=== PATIENT | male | born 1965 | race Two or more races ===

== ENCOUNTER 2020-01-19 06:50 | Inpatient (IN) | payer MEDICAID, OTHER ==
[~2020-01-19] VITALS: Ht 180.3 cm; Wt 115.0 kg
[2020-01-19] MEDS ORDERED: ACETAMINOPHEN 500 MG TAB PO ONE (08:15)
[2020-01-19 08:22] LABS: Basophils # (auto) 0 10 ^3/uL (0-0.2); Basophils % (auto) 0.3 % (0.0-2.0); Eosinophils # (auto) 0 10 ^3/uL (0-0.8); Eosinophils % (auto) 0.1 % (0.0-7.0); Hematocrit 44.8 % (41.0-53.0); Hemoglobin 14.9 g/dL (13.5-17.5); Lymphocytes # (auto) 0.9 10 ^3/uL (0.4-5.4); Lymphocytes % (auto) 13.1 % (10.0-50.0); Mean Corpuscular Hemoglobin 27.6 pg (28.0-32.0); Mean Corpuscular Hgb Conc. 33.2 g/dL (32.0-36.0); Mean Corpuscular Volume 83.3 fL (80.0-100.0); Monocytes # (auto) 0.6 10 ^3/uL (0-1.3); Monocytes % (auto) 9.7 % (0.0-12.0); Neutrophils # (auto) 5.2 10 ^3/uL (1.6-8.6); Neutrophils % (auto) 76.8 % (37.0-80.0); Nucleated Red Blood Cells % 0.2 %; Platelet Count (auto) 189 10^3/uL (140-450); Red Blood Cells 5.38 10^6/uL (4.5-5.90); Red Cell Distribution Width 14.3 % (11.8-14.3); White Blood Cell 6.7 10^3/uL (4.4-10.8)
[2020-01-19] MEDS ORDERED: DexAMETHasone SOD PHOS 10MG/1ML VIAL INJ IV ONE (08:30)
[2020-01-19 09:04] LABS: Alanine Aminotransferase 36 U/L (16-61); Albumin 2.8 g/dL (3.4-5.0); Alkaline Phosphatase 116 U/L (45-117); Anion Gap 10 (5-15); Aspartate Aminotransferase 32 U/L (15-37); BUN/Creatinine Ratio 9.5; Bilirubin, Total 0.5 mg/dL (0.2-1.0); Blood Urea Nitrogen 12 mg/dL (7-18); Calcium 7.9 mg/dL (8.5-10.1); Carbon Dioxide 25 mmol/L (21-32); Chloride 95 mmol/L (98-107); GFR African American 77 mL/min; GFR Non-African American 64 mL/min; Glucose 248 mg/dL (74-106); Lactate Dehydrogenase 315 U/L (87-241); Potassium 3.2 mmol/L (3.5-5.1); Sodium 130 mmol/L (136-145); Total Protein 7.9 g/dL (6.4-8.2)
[2020-01-19 09:43] LABS: CRP High Sensitivity 6.18 mg/dL (< 0.3)
[2020-01-19] MEDS ORDERED: ACETAMINOPHEN 325 MG TAB PO PRN (11:45)
[2020-01-19] MEDS ORDERED: POTASSIUM EFFERVESENT TAB 25 MEQ PO ONE ×2 (11:45)
[2020-01-19] MEDS ORDERED: HYDROcodone-ACET 5/325MG TAB PO PRN (11:45)
[2020-01-19 12:10] VITALS: BP 114/74
[2020-01-19] MEDS ORDERED: LATA0.0019 EACHEYE (12:39)
[2020-01-19] MEDS ORDERED: METF-916 PO (12:39)
[2020-01-19] MEDS ORDERED: LISI-648 PO (12:39)
[2020-01-19] MEDS ORDERED: METH10TA6 PO (12:39)
[2020-01-19] MEDS ORDERED: GLIM4TAB42 PO (12:39)
[2020-01-19] MEDS ORDERED: OMEP-263 PO (12:39)
[2020-01-19] MEDS ORDERED: CHOL500023 PO (12:39)
[2020-01-19] MEDS ORDERED: ATOR20TA50 PO (12:39)
[2020-01-19] MEDS: ASCORBIC ACID 500 MG TAB PO SCH (12:45)
[2020-01-19] MEDS: CHOLECALCIFEROL (VITD3) 2,000 UNIT CAP PO SCH (12:45)
[2020-01-19] MEDS: ZINC SULFATE 220mg CAP or TAB PO SCH (12:45)
[2020-01-19 18:58] LABS: Urine Bacteria FEW /hpf (None Seen); Urine Blood 1+ /uL (Negative); Urine Mucus FEW (None Seen); Urine Specific Gravity 1.023 (1.001-1.035); Urine WBC 4 /hpf (0 - 3)
[2020-01-19] MEDS: ALBUTEROL SULF HFA 90MCG INH 200DOSE IN SCH ×2 (19:01→21:00)
[2020-01-19] MEDS ORDERED: DEXTROSE (50%) 50ML SYRG IV PRN (22:15)
[2020-01-19 23:59] VITALS: BP 112/70
[2020-01-19] MEDS: ATORVASTATIN 20 MG TAB PO SCH (23:59)
[2020-01-19] MEDS: DOXYCYCLINE 100MG/250ML 250 ML IV SCH (23:59)
--- NOTE | 2020-01-19 23:59 | NUR ---
Telemetry admit from ER MONSE CARNEY admitted to Telemetry unit after SBAR received. Patient oriented to DEVI REVELES, RN primary RN, unit, room, bed, and unit policies regarding patient care and visiting hours. Patient now on continuous telemetry monitoring, tele box # 7 and telemetry reading on arrival to unit is SR-[id number]. Patient placed on 3L bedside oxygen, weighed by bedscale and encouraged to call if they need something. All questions and concerns addressed, patient verbalized understanding.
[2020-01-20] MEDS ORDERED: INFLUENZA QUAD 2020-2021 0.5 ML SYRG IM ONE (01:45)
[2020-01-20] MEDS ORDERED: PNEUMOCOCCAL VACC POLYS 25 MCG/0.5 ML VIAL IM ONE (01:45)
--- NOTE | 2020-01-20 02:45 | NUR ---
IV removal Patient c/o pain to IV site. IV DC'd with clean sterile technique, catheter fully intact. Pressure dressing applied to site. Patient tolerated well.
--- NOTE | 2020-01-20 02:50 | NUR ---
IV insertion IV access obtained, via clean sterile technique by inserting 20 gauge catheter at RFA after 2 attempts. IV secured properly. No trauma to site. Patient tolerated well.
[2020-01-20 05:00] VITALS: BP 107/69
[2020-01-20] MEDS: ALBUTEROL SULF HFA 90MCG INH 200DOSE IN SCH ×3 (06:08→20:32)
[2020-01-20] MEDS: InsuLIN REG 1unit/0.01ml Soln (100units/ml) SC SCH ×4 (06:30→22:31)
[2020-01-20] MEDS: ACCU-CHEK COMFORT CURVE STRIP VI SCH ×4 (06:30→22:13)
[2020-01-20 07:36] LABS: Basophils # (auto) 0 10 ^3/uL (0-0.2); Basophils % (auto) 0.2 % (0.0-2.0); Eosinophils # (auto) 0 10 ^3/uL (0-0.8); Hemoglobin 14.8 g/dL (13.5-17.5); Lymphocytes # (auto) 0.8 10 ^3/uL (0.4-5.4); Lymphocytes % (auto) 6.6 % (10.0-50.0); Mean Corpuscular Hemoglobin 27.9 pg (28.0-32.0); Mean Corpuscular Hgb Conc. 33.7 g/dL (32.0-36.0); Monocytes # (auto) 0.6 10 ^3/uL (0-1.3); Monocytes % (auto) 5.1 % (0.0-12.0); Neutrophils # (auto) 10.5 10 ^3/uL (1.6-8.6); Neutrophils % (auto) 88.1 % (37.0-80.0); Nucleated Red Blood Cells % 0.1 %; Platelet Count (auto) 205 10^3/uL (140-450); Red Cell Distribution Width 14.1 % (11.8-14.3); White Blood Cell 11.9 10^3/uL (4.4-10.8)
[2020-01-20 07:50] LABS: Calcium 8.4 mg/dL (8.5-10.1); Magnesium 2.6 mg/dL (1.6-2.6); Potassium 3.8 mmol/L (3.5-5.1)
[2020-01-20 07:59] LABS: BUN/Creatinine Ratio 18.1; CRP High Sensitivity 5.81 mg/dL (< 0.3)
[2020-01-20 08:41] VITALS: BP 138/89
[2020-01-20] MEDS: ASCORBIC ACID 500 MG TAB PO SCH (10:00)
[2020-01-20] MEDS: DexAMETHasone 4 MG TAB PO SCH (10:54)
[2020-01-20] MEDS: DOXYCYCLINE 100MG/250ML 250 ML IV SCH ×2 (10:54→22:12)
[2020-01-20] MEDS: ZINC SULFATE 220mg CAP or TAB PO SCH (10:54)
[2020-01-20] MEDS: methIMAzole 5 MG TAB PO SCH (10:55)
[2020-01-20] MEDS: PANTOPRAZOLE 40 MG TAB PO SCH (10:55)
[2020-01-20] MEDS: CHOLECALCIFEROL (VITD3) 2,000 UNIT CAP PO SCH (10:56)
[2020-01-20] MEDS ORDERED: IOHEXOL 350 MG/ML 100ML IJ ONE (12:55)
[2020-01-20 13:00] VITALS: BP 116/65
--- NOTE | 2020-01-20 13:10 | NUR ---
Jenn THOMAS ROUNDING: Jenn THOMAS AT BEDSIDE. INFORMED OF PATIENTS CURRENT OXYGENATION STATUS. INFORMED PATIENT HAS BEEN TACHYCARDIC IN THE 120'S. INFORMED OF PATIENTS LACK OF SLEEP. NO NEW ORDERS RECEIVED.
--- NOTE | 2020-01-20 13:20 | NUR ---
PATIENT TAKEN DOWN TO CT VIA WHEELCHAIR BY AMMUNITION SPECIALIST ON 3L NC. PATIENT MAINTAINED ON NPO STATUS.
--- NOTE | 2020-01-20 15:04 | NUR ---
Assessment Patient is a 54-year-old male who is alert and oriented. Prior to admission patient was staying with his sister Ruthy. Patient states his sister was allowing him to sleep at her home but during the day he would leave. Patient states he does not want to return home with his sister. Patient states he receives unemployment with an amount of 200 dlls. Patient has MD orders for home health and home oxygen but if patient does not have a placed to go to after discharge MD order cannot be completed. Will informed bedside nurse. Addendum: 01/20/20 at 1516 by GREG LAWRENCE Amended: Links added.
[2020-01-20 17:00] VITALS: BP 107/68
--- NOTE | 2020-01-20 20:10 | NUR ---
OPENING SHIFT NOTE Assumed care of patient who is A&O x4. Currently on 3L NC. Denies pain at this time. PIV in right forearm in intact and patent. Flushed with 10ml NS. Patient is ambulatory at baseline without the use of assistive devices. POC discussed and patient encouraged to call for assistance when needed. Bed is in low locked position with side rails up x2. Call light is within reach and patient encouraged to call for assistance when needed. Will continue to monitor for changes PRN.
[2020-01-20 22:00] VITALS: BP 119/82
[2020-01-20] MEDS: ATORVASTATIN 20 MG TAB PO SCH (22:13)
[2020-01-21] VITALS (7 sets, daily range): BP systolic 90–127; BP diastolic 48–95
--- NOTE | 2020-01-21 05:16 | NUR ---
DESATURATION Patient's spo2 is 87% on 3L NC with noted dry cough. O2 increased to 5L and spo2 increased to 92% Robitussin administered as ordered for cough. Lab at bedside for blood draw. Will continue to monitor for changes.
[2020-01-21] MEDS: guaiFENesin-DM 100/10mg/5ml SYR PO PRN (05:19)
[2020-01-21] MEDS: ACCU-CHEK COMFORT CURVE STRIP VI SCH ×4 (06:47→21:39)
[2020-01-21 06:57] LABS: Calcium 8.8 mg/dL (8.5-10.1); Potassium 3.8 mmol/L (3.5-5.1)
[2020-01-21] MEDS: InsuLIN REG 1unit/0.01ml Soln (100units/ml) SC SCH ×4 (06:57→21:49)
[2020-01-21] MEDS: ALBUTEROL SULF HFA 90MCG INH 200DOSE IN SCH ×3 (06:58→21:55)
--- NOTE | 2020-01-21 07:06 | NUR ---
LABS Received call from lab stating that CBC was hemolyzed. Will redraw.
[2020-01-21 07:07] LABS: BUN/Creatinine Ratio 16.4; CRP High Sensitivity 10.5 mg/dL (< 0.3)
[2020-01-21 08:35] LABS: Basophils # (auto) 0 10 ^3/uL (0-0.2); Basophils % (auto) 0.2 % (0.0-2.0); Eosinophils # (auto) 0 10 ^3/uL (0-0.8); Hematocrit 40.6 % (41.0-53.0); Hemoglobin 13.5 g/dL (13.5-17.5); Lymphocytes # (auto) 1.3 10 ^3/uL (0.4-5.4); Lymphocytes % (auto) 8.2 % (10.0-50.0); Mean Corpuscular Hemoglobin 27.4 pg (28.0-32.0); Mean Corpuscular Hgb Conc. 33.1 g/dL (32.0-36.0); Mean Corpuscular Volume 82.7 fL (80.0-100.0); Monocytes # (auto) 0.8 10 ^3/uL (0-1.3); Neutrophils # (auto) 13.8 10 ^3/uL (1.6-8.6); Neutrophils % (auto) 86.6 % (37.0-80.0); Nucleated Red Blood Cells % 0.1 %; Platelet Count (auto) 237 10^3/uL (140-450); Red Blood Cells 4.91 10^6/uL (4.5-5.90); Red Cell Distribution Width 13.7 % (11.8-14.3); White Blood Cell 15.9 10^3/uL (4.4-10.8)
[2020-01-21] MEDS: PANTOPRAZOLE 40 MG TAB PO SCH (10:10)
[2020-01-21] MEDS: DOXYCYCLINE 100MG/250ML 250 ML IV SCH ×2 (10:10→21:39)
[2020-01-21] MEDS: ZINC SULFATE 220mg CAP or TAB PO SCH (10:10)
[2020-01-21] MEDS: DexAMETHasone 4 MG TAB PO SCH (10:10)
[2020-01-21] MEDS: ASCORBIC ACID 500 MG TAB PO SCH (10:11)
[2020-01-21] MEDS: CHOLECALCIFEROL (VITD3) 2,000 UNIT CAP PO SCH (10:11)
[2020-01-21] MEDS: methIMAzole 5 MG TAB PO SCH (10:11)
[2020-01-21] MEDS ORDERED: REMDESIVIR PER PHARMACY IV SCH (11:30)
[2020-01-21] MEDS ORDERED: REMDESIVIR 200 MG in NS 210ml LOADING DOSE ADULT IV ONE (17:00)
--- NOTE | 2020-01-21 20:00 | NUR ---
OPENING SHIFT NOTE Assumed care of patient who is A&O x4. Currently on 3L NC with no s/s of distress. Reports mild SOB with exertion and dry cough noted. Patient denies pain at this time. PIV in right forearm is intact and patent. Flushed with 10ml NS. Noted to flush slowly, but patient denies discomfort to the area. POC discussed and patient verbalizes understanding. Bed is in low locked position with side rails up x2. Call light is within reach and patient encouraged to call for assistance when needed. Will continue to monitor for changes PRN.
[2020-01-21] MEDS: ATORVASTATIN 20 MG TAB PO SCH (21:39)
--- NOTE | 2020-01-21 23:54 | NUR ---
IV removal IV to right forearm infiltrated. DC'd with clean sterile technique, catheter fully intact. Pressure dressing applied to site. Patient tolerated well.
--- NOTE | 2020-01-21 23:58 | NUR ---
IV insertion IV access obtained, via clean sterile technique by inserting 22 gauge catheter at left forearm after 1 attempt. IV secured properly. No trauma to site. Patient tolerated well.
[2020-01-22] VITALS (10 sets, daily range): BP systolic 92–132; BP diastolic 55–83
[2020-01-22] MEDS: guaiFENesin-DM 100/10mg/5ml SYR PO PRN (00:23)
--- NOTE | 2020-01-22 03:09 | NUR ---
[facility] [employer] Plasma verified by two RNs. Vital signs measured and documented under transfusion spreadsheet. Transfusion started. No adverse effects noted.
--- NOTE | 2020-01-22 04:30 | NUR ---
TRANSFUSION COMPLETE No adverse effects noted. Vital signs documented in transfusion spread sheet.
[2020-01-22] MEDS: ALBUTEROL SULF HFA 90MCG INH 200DOSE IN SCH ×3 (06:38→22:22)
[2020-01-22] MEDS: ACCU-CHEK COMFORT CURVE STRIP VI SCH ×4 (06:46→22:04)
[2020-01-22] MEDS: InsuLIN REG 1unit/0.01ml Soln (100units/ml) SC SCH ×4 (06:56→22:07)
[2020-01-22 07:23] LABS: Basophils # (auto) 0 10 ^3/uL (0-0.2); Basophils % (auto) 0.1 % (0.0-2.0); Eosinophils # (auto) 0 10 ^3/uL (0-0.8); Hematocrit 39.8 % (41.0-53.0); Hemoglobin 13.6 g/dL (13.5-17.5); Lymphocytes # (auto) 1.2 10 ^3/uL (0.4-5.4); Lymphocytes % (auto) 9.1 % (10.0-50.0); Mean Corpuscular Hemoglobin 28.1 pg (28.0-32.0); Mean Corpuscular Hgb Conc. 34.1 g/dL (32.0-36.0); Mean Corpuscular Volume 82.4 fL (80.0-100.0); Monocytes # (auto) 0.8 10 ^3/uL (0-1.3); Monocytes % (auto) 6.1 % (0.0-12.0); Neutrophils # (auto) 10.7 10 ^3/uL (1.6-8.6); Neutrophils % (auto) 84.7 % (37.0-80.0); Nucleated Red Blood Cells % 0.1 %; Platelet Count (auto) 272 10^3/uL (140-450); Red Blood Cells 4.83 10^6/uL (4.5-5.90); Red Cell Distribution Width 13.9 % (11.8-14.3); White Blood Cell 12.6 10^3/uL (4.4-10.8)
--- NOTE | 2020-01-22 07:45 | NUR ---
Opening Shift Note Assumed care of patient, awake and alert. A/O X 4. Patient is on 2L NC with no S/S of distress/SOB or pain. Skin is warm and dry with right and left lower leg discoloration, consistent with venous stasis dermatitis. Pulses 1+ noted in the lower extremities. Right arm is slightly edematous. Patient reports red tinged sputum when coughing. Instructed on POC and to call for assist PRN. Patient verbalized understanding. Safety measure are in place and the call light is within reach of the patient. Will continue to monitor for changes Q1hr and PRN.
[2020-01-22 07:47] LABS: Albumin 2.5 g/dL (3.4-5.0); Calcium 8.5 mg/dL (8.5-10.1); Magnesium 2.7 mg/dL (1.6-2.6); Potassium 3.4 mmol/L (3.5-5.1)
[2020-01-22 07:56] LABS: BUN/Creatinine Ratio 20.7; Bilirubin, Direct 0.2 mg/dL (0-0.2); Bilirubin, Total 0.5 mg/dL (0.2-1.0); CRP High Sensitivity 10.1 mg/dL (< 0.3); Total Protein 7.2 g/dL (6.4-8.2)
--- NOTE | 2020-01-22 10:00 | NUR ---
Dr. Freeman at bedside Dr. Freeman at bedside discussing the POC with the patient. All questions and concerns were answered at this time.
[2020-01-22] MEDS: PANTOPRAZOLE 40 MG TAB PO SCH (11:27)
[2020-01-22] MEDS: CHOLECALCIFEROL (VITD3) 2,000 UNIT CAP PO SCH (11:27)
[2020-01-22] MEDS: DOXYCYCLINE 100MG/250ML 250 ML IV SCH ×2 (11:27→22:04)
[2020-01-22] MEDS: methIMAzole 5 MG TAB PO SCH (11:27)
[2020-01-22] MEDS: ZINC SULFATE 220mg CAP or TAB PO SCH (11:27)
[2020-01-22] MEDS: DexAMETHasone 4 MG TAB PO SCH (11:28)
--- NOTE | 2020-01-22 12:50 | NUR ---
Suicidal thought Patient's sister called saying that the patient is sending her suicidal messages and that he is feeling depressed. Patient was counseled and assessed. Patient states he "has no plan" to take his life. Charge made aware. Will continue to monitor closely.
[2020-01-22] MEDS: ASCORBIC ACID 1,000 MG TAB PO SCH (13:50)
--- NOTE | 2020-01-22 14:10 | NUR ---
Call light answered Patient called reporting his left forearm was swollen from IV antibiotics running. IV was assessed and a new 20 gauge IV was placed using sterile technique in the left AC after 2 attempts. Patient tolerated the procedure well. IV antibiotics ran switched over to new site. Warm compresses applied.
--- NOTE | 2020-01-22 17:15 | NUR ---
Remdesivir treatment started Remdesivir started, vitals, 97.7, HR 64, RR 22, BP 123/76, O2 92%. Vitals rechecked at 1730, 97.8, HR 59, RR 19, BP 117/69, O2 92%. Patient tolerating the treatment well.
[2020-01-22] MEDS: REMDESIVIR 100mg in NS 230ml DAILYx4DAYS (NO VENT) IV SCH (17:16)
--- NOTE | 2020-01-22 19:59 | NUR ---
REMDESIVIR COMPLETE IV FLUSHED WITH 30ML NORMAL SALINE. VITALS STABLE BP 115/71 RR 20 HR 71 O2 92%. WILL CONTINUE TO MONITOR.
[2020-01-22] MEDS: ATORVASTATIN 20 MG TAB PO SCH (22:04)
[2020-01-23 05:00] VITALS: BP 113/67
[2020-01-23] MEDS: ACCU-CHEK COMFORT CURVE STRIP VI SCH ×4 (06:23→22:04)
[2020-01-23] MEDS: InsuLIN REG 1unit/0.01ml Soln (100units/ml) SC SCH ×4 (06:26→22:09)
[2020-01-23] MEDS: ALBUTEROL SULF HFA 90MCG INH 200DOSE IN SCH ×3 (06:29→21:51)
--- NOTE | 2020-01-23 07:50 | NUR ---
Shift Opening Note Assumed care of patient, awake and alert. A/O X 4. Patient is on 2L NC with no S/S of distress/SOB or pain. Skin is warm and dry with right and left lower leg discoloration, consistent with venous stasis dermatitis. Pulses 1+ noted in the lower extremities. Instructed on POC and to call for assist PRN. Patient verbalized understanding. Safety measure are in place and the call light is within reach of the patient. Will continue to monitor for changes Q1hr and PRN.
[2020-01-23 09:00] VITALS: BP 114/57
[2020-01-23] MEDS: ZINC SULFATE 220mg CAP or TAB PO SCH (09:54)
[2020-01-23] MEDS: DexAMETHasone 4 MG TAB PO SCH (09:54)
[2020-01-23] MEDS: DOXYCYCLINE 100MG/250ML 250 ML IV SCH ×2 (09:54→22:04)
[2020-01-23] MEDS: PANTOPRAZOLE 40 MG TAB PO SCH (09:55)
[2020-01-23] MEDS: methIMAzole 5 MG TAB PO SCH (09:55)
[2020-01-23] MEDS: CHOLECALCIFEROL (VITD3) 2,000 UNIT CAP PO SCH (09:55)
[2020-01-23] MEDS: ASCORBIC ACID 1,000 MG TAB PO SCH (09:55)
[2020-01-23 12:54] VITALS: BP 129/78
--- NOTE | 2020-01-23 13:03 | NUR ---
Nutrition Assessment Notes Please refer to link for full assessment notes. Est Energy needs: 5349-2230 kcals (12-15 kcal/kgBW) Est Protein needs: 156-195 gms/day (2.0-2.5 gm/kgIBW 78kg) Will continue to monitor and reassess prn. Addendum: 01/23/20 at [address] Amended: Links added.
--- NOTE | 2020-01-23 14:57 | NUR ---
Dr. Freeman at bedside Dr. Freeman at bedside discussing the POC with the patient. All questions and concerns were answered at this time.
[2020-01-23] MEDS ORDERED: GLIMEPIRIDE 2 MG TAB PO ONE (15:00)
[2020-01-23 16:50] VITALS: BP 125/69
[2020-01-23] MEDS: REMDESIVIR 100mg in NS 230ml DAILYx4DAYS (NO VENT) IV SCH (17:16)
--- NOTE | 2020-01-23 18:10 | NUR ---
Remdesivir Treatment vitals Pre treatment vitals BP 123/70, RR 18, HR 57, temp 98.0, O2 92% at 1716. Vitals at 1731 BP 121/71, HR 55, RR 18, temp 97.9 O2 93%. Post treatment vitals at 1810 BP 122/70, HR 55, RR 20, temp 97.9, O2 93%.
[2020-01-23 22:00] VITALS: BP 134/85
[2020-01-23] MEDS: ATORVASTATIN 20 MG TAB PO SCH (22:04)
[2020-01-24 05:00] VITALS: BP 109/70
[2020-01-24] MEDS: ALBUTEROL SULF HFA 90MCG INH 200DOSE IN SCH ×3 (06:28→22:39)
[2020-01-24] MEDS: ACCU-CHEK COMFORT CURVE STRIP VI SCH ×4 (06:30→23:00)
[2020-01-24] MEDS: InsuLIN REG 1unit/0.01ml Soln (100units/ml) SC SCH ×4 (06:33→23:04)
[2020-01-24 06:57] LABS: Basophils # (auto) 0 10 ^3/uL (0-0.2); Basophils % (auto) 0.1 % (0.0-2.0); Eosinophils # (auto) 0 10 ^3/uL (0-0.8); Eosinophils % (auto) 0.1 % (0.0-7.0); Hematocrit 40.9 % (41.0-53.0); Hemoglobin 13.5 g/dL (13.5-17.5); Lymphocytes # (auto) 2.1 10 ^3/uL (0.4-5.4); Lymphocytes % (auto) 14.9 % (10.0-50.0); Mean Corpuscular Hemoglobin 27.3 pg (28.0-32.0); Mean Corpuscular Hgb Conc. 33.1 g/dL (32.0-36.0); Mean Corpuscular Volume 82.5 fL (80.0-100.0); Monocytes # (auto) 1.3 10 ^3/uL (0-1.3); Monocytes % (auto) 9.4 % (0.0-12.0); Neutrophils # (auto) 10.6 10 ^3/uL (1.6-8.6); Neutrophils % (auto) 75.5 % (37.0-80.0); Nucleated Red Blood Cells % 0.1 %; Platelet Count (auto) 401 10^3/uL (140-450); Red Blood Cells 4.95 10^6/uL (4.5-5.90); Red Cell Distribution Width 13.7 % (11.8-14.3)
[2020-01-24 07:09] LABS: Albumin 2.5 g/dL (3.4-5.0); Calcium 8.5 mg/dL (8.5-10.1); Magnesium 2.7 mg/dL (1.6-2.6); Potassium 3.2 mmol/L (3.5-5.1)
[2020-01-24 07:15] LABS: BUN/Creatinine Ratio 24.7; Bilirubin, Total 0.4 mg/dL (0.2-1.0); Total Protein 6.9 g/dL (6.4-8.2)
[2020-01-24 09:00] VITALS: BP 97/66
[2020-01-24] MEDS: DOXYCYCLINE 100MG/250ML 250 ML IV SCH ×2 (09:30→23:00)
[2020-01-24] MEDS: ZINC SULFATE 220mg CAP or TAB PO SCH (09:30)
[2020-01-24] MEDS: methIMAzole 5 MG TAB PO SCH (09:31)
[2020-01-24] MEDS: DexAMETHasone 4 MG TAB PO SCH (09:31)
[2020-01-24] MEDS: PANTOPRAZOLE 40 MG TAB PO SCH (09:31)
[2020-01-24] MEDS: ASCORBIC ACID 1,000 MG TAB PO SCH (09:31)
[2020-01-24] MEDS: CHOLECALCIFEROL (VITD3) 2,000 UNIT CAP PO SCH (09:32)
[2020-01-24 13:00] VITALS: BP 125/66
--- NOTE | 2020-01-24 16:47 | NUR ---
PAGED ELEVATED BLOOD SUGAR 428.
--- NOTE | 2020-01-24 16:47 | NUR ---
NEW ORDER FOR MODERATE INSULIN SCALE
[2020-01-24 17:00] VITALS: BP 118/76
[2020-01-24] MEDS ORDERED: POTASSIUM CHL 20 Meq TABLET PO ONE (17:00)
[2020-01-24] MEDS: REMDESIVIR 100mg in NS 230ml DAILYx4DAYS (NO VENT) IV SCH (17:00)
--- NOTE | 2020-01-24 17:00 | NUR ---
PRE REMDESIVIR VITALS BP 118/70 P 55 RR16 93% ROOM AIR
--- NOTE | 2020-01-24 17:15 | NUR ---
15 INFUSION VITALS BP 117/72 P 60 RR18 93% SATURATION ON ROOM AIR
--- NOTE | 2020-01-24 18:56 | NUR ---
ENDORSED CARE TO NIGHT RN, PATIENT RUNNING REMDESIVIR NOC TO ASSESS POST INFUSION VITALS.
--- NOTE | 2020-01-24 20:43 | NUR ---
POST REMDESIVIR VITALS BP 114/76 HR 66 O2 93%
[2020-01-24 22:00] VITALS: BP 109/63
[2020-01-24] MEDS: ATORVASTATIN 20 MG TAB PO SCH (23:00)
[2020-01-25 05:00] VITALS: BP 109/69
[2020-01-25] MEDS: ALBUTEROL SULF HFA 90MCG INH 200DOSE IN SCH ×3 (06:20→22:00)
[2020-01-25] MEDS: ACCU-CHEK COMFORT CURVE STRIP VI SCH ×4 (06:22→21:05)
[2020-01-25] MEDS: InsuLIN REG 1unit/0.01ml Soln (100units/ml) SC SCH ×5 (06:28→21:06)
--- NOTE | 2020-01-25 07:30 | NUR ---
Opening Shift Note Upon entering room patient awake and alert. No signs of distress or pain noted. Respirations even and unlabored. Instructed patient on the use of the call light PRN, call light within reach. Bed locked and in lowest position with two side rails up. Will continue to monitor for changes.
[2020-01-25 08:08] LABS: Hematocrit 40.1 % (41.0-53.0); Hemoglobin 13.2 g/dL (13.5-17.5); Mean Corpuscular Hemoglobin 27.2 pg (28.0-32.0); Mean Corpuscular Hgb Conc. 32.9 g/dL (32.0-36.0); Mean Corpuscular Volume 82.7 fL (80.0-100.0); Platelet Count (auto) 415 10^3/uL (140-450); Red Blood Cells 4.85 10^6/uL (4.5-5.90); Red Cell Distribution Width 14.2 % (11.8-14.3); White Blood Cell 12.5 10^3/uL (4.4-10.8)
[2020-01-25 08:24] LABS: Calcium 8.6 mg/dL (8.5-10.1); Magnesium 2.6 mg/dL (1.6-2.6); Potassium 3.7 mmol/L (3.5-5.1)
[2020-01-25 08:26] LABS: BUN/Creatinine Ratio 26.4
[2020-01-25 09:00] VITALS: BP 105/67
[2020-01-25 09:17] LABS: Basophils % (manual) 0 (0.0-2.0); Blast Cells 0; Eosinophils % (manual) 0 (0-7); Promyelocytes % 0; Reactive Lymphocytes 0
[2020-01-25 10:28] VITALS: BP 109/69
[2020-01-25] MEDS: DOXYCYCLINE 100MG/250ML 250 ML IV SCH ×2 (10:32→21:04)
[2020-01-25] MEDS: ASCORBIC ACID 1,000 MG TAB PO SCH (10:33)
[2020-01-25] MEDS: DexAMETHasone 4 MG TAB PO SCH (10:35)
[2020-01-25] MEDS: PANTOPRAZOLE 40 MG TAB PO SCH (10:36)
[2020-01-25] MEDS: methIMAzole 5 MG TAB PO SCH (10:36)
[2020-01-25] MEDS: ZINC SULFATE 220mg CAP or TAB PO SCH (10:37)
[2020-01-25] MEDS: CHOLECALCIFEROL (VITD3) 2,000 UNIT CAP PO SCH (10:37)
[2020-01-25 12:20] LABS: Band Neutrophils % (manual) 6; Lymphocytes % (manual) 14 (10.0-50.0); Metamyelocytes % 4; Monocytes % (manual) 11 (0-12); Myelocytes % 3
[2020-01-25 13:00] VITALS: BP 100/69
[2020-01-25 17:00] VITALS: BP 124/77
--- NOTE | 2020-01-25 17:30 | NUR ---
PRE- INFUSION VITALS BP 122/76 P 82 RR 18 TEMP 97.5 93% SATURATION ON ROOM AIR
--- NOTE | 2020-01-25 18:00 | NUR ---
15 MINUTE INFUSION VITALS BP 119/64 P 64 RR16 TEMP 98.2 93% SATURATION ON ROOM AIR
[2020-01-25] MEDS: REMDESIVIR 100mg in NS 230ml DAILYx4DAYS (NO VENT) IV SCH (18:46)
[2020-01-25] MEDS: LATANOPROST 0.005 % OPTH(EYE) SOL 2.5ML EACHEYE SCH (21:04)
[2020-01-25] MEDS: ATORVASTATIN 20 MG TAB PO SCH (21:05)
--- NOTE | 2020-01-25 23:20 | NUR ---
Opening Shift Note Assumed care of patient, awake and alert. No S/S of distress/SOB or pain. Instructed on POC and to call for assist PRN, will continue to monitor for changes Q1hr and PRN.
[2020-01-26 05:00] VITALS: BP 113/70
[2020-01-26] MEDS: ALBUTEROL SULF HFA 90MCG INH 200DOSE IN SCH ×3 (05:57→21:46)
[2020-01-26] MEDS: ACCU-CHEK COMFORT CURVE STRIP VI SCH ×4 (06:30→21:43)
[2020-01-26] MEDS: InsuLIN REG 1unit/0.01ml Soln (100units/ml) SC SCH ×4 (06:39→22:02)
[2020-01-26 08:47] VITALS: BP 119/65
[2020-01-26] MEDS: PANTOPRAZOLE 40 MG TAB PO SCH (09:46)
[2020-01-26] MEDS: ASCORBIC ACID 1,000 MG TAB PO SCH (09:46)
[2020-01-26] MEDS: methIMAzole 5 MG TAB PO SCH (09:46)
[2020-01-26] MEDS: DexAMETHasone 4 MG TAB PO SCH (09:47)
[2020-01-26] MEDS: CHOLECALCIFEROL (VITD3) 2,000 UNIT CAP PO SCH (09:48)
[2020-01-26] MEDS: DOXYCYCLINE 100MG/250ML 250 ML IV SCH (09:48)
[2020-01-26] MEDS: ZINC SULFATE 220mg CAP or TAB PO SCH (09:48)
[2020-01-26 12:26] VITALS: BP 120/76
--- NOTE | 2020-01-26 12:57 | NUR ---
Nutrition Followup Notes Pt wt is 130.6 kg Pt is positive for COVID, in isolation. Pt is with a CCHO 45g diet, appetite is good aeb ave 88% x 6 PO intake per RN doc. Est Energy needs: 3574-6761 kcals (12-15 kcal/kgBW) Est Protein needs: 156-195 gms/day (2.0-2.5 gm/kgIBW 78kg) Will continue to monitor and reassess prn. LABS: GLUC 288 H, A1c 7.1 H, ALB 2.5 L GI: pt had 2 BMs today per RN doc. BS: 20 low risk. Refer to wound assessment report for further details. PES: 1) Obesity r/t energy intake in excess of energy needs aeb BMI of 40.3 kg/m2 2) Altered nutrition related lab values r/t current/chronic medical condition aeb hyperglycemia, elev RFT, hypoalbuminemia Comments Will continue to monitor PO status, skin status, pertinent labs and weight trends. Will f/u in 3-5 days 1) Continue to closely monitor pt PO intake to meet at least 75% of meals 2) Continue current plan of care
[2020-01-26 17:00] VITALS: BP 113/63
--- NOTE | 2020-01-26 18:58 | NUR ---
ENDORSED CARE TO NIGHT RN. PATIENT WILL LIKELY D/C TOMORROW , S.S. ORDER FOR SNF PLACEMENT.
[2020-01-26] MEDS: ATORVASTATIN 20 MG TAB PO SCH (22:01)
[2020-01-26] MEDS: LATANOPROST 0.005 % OPTH(EYE) SOL 2.5ML EACHEYE SCH (22:01)
[2020-01-26] MEDS: DOXYCYCLINE 100 MG TAB/CAP PO SCH (22:01)
[2020-01-26 23:24] VITALS: BP 116/51
[2020-01-27 05:54] VITALS: BP 121/67
[2020-01-27] MEDS: ACCU-CHEK COMFORT CURVE STRIP VI SCH ×4 (06:08→21:26)
[2020-01-27 06:09] LABS: Hematocrit 42.3 % (41.0-53.0); Mean Corpuscular Volume 83.2 fL (80.0-100.0); Red Blood Cells 5.08 10^6/uL (4.5-5.90); White Blood Cell 17.4 10^3/uL (4.4-10.8)
[2020-01-27 06:11] LABS: Mean Corpuscular Hemoglobin 27.6 pg (28.0-32.0); Mean Corpuscular Hgb Conc. 33.2 g/dL (32.0-36.0); Platelet Count (auto) 513 10^3/uL (140-450); Red Cell Distribution Width 14.1 % (11.8-14.3)
[2020-01-27] MEDS: InsuLIN REG 1unit/0.01ml Soln (100units/ml) SC SCH ×3 (06:14→21:40)
[2020-01-27 06:26] LABS: Potassium 3.5 mmol/L (3.5-5.1)
[2020-01-27 06:33] LABS: BUN/Creatinine Ratio 24.7; Calcium 8.8 mg/dL (8.5-10.1); Magnesium 2.4 mg/dL (1.6-2.6)
[2020-01-27] MEDS: ALBUTEROL SULF HFA 90MCG INH 200DOSE IN SCH ×2 (06:42→20:23)
[2020-01-27 06:43] LABS: Basophils % (manual) 0 (0.0-2.0); Blast Cells 0; Eosinophils % (manual) 0 (0-7); Metamyelocytes % 0; Myelocytes % 0; Promyelocytes % 0; Reactive Lymphocytes 0
[2020-01-27] MEDS ORDERED: glipiZIDE 5 MG TAB PO SCH (07:00)
--- NOTE | 2020-01-27 08:00 | NUR ---
Opening Shift Note Assumed care of patient, pt is awake and A&OX4. No S/S of distress/SOB or pain. Instructed on POC and to call for assist PRN, call light within reach. Bed is locked and in lowest position with side rails upX2. Pt presents depressed mood and has history of suicidal attempt about 26 years ago. Planning to provide psych eval later today. Will continue to monitor for changes Q1hr and PRN.
[2020-01-27 08:24] LABS: Band Neutrophils % (manual) 6; Lymphocytes % (manual) 15 (10.0-50.0); Monocytes % (manual) 9 (0-12)
[2020-01-27 08:59] VITALS: BP 119/74
--- NOTE | 2020-01-27 09:00 | NUR ---
SUICIDE RISK PATIENT STATED TO THIS RN "WHEN I GET HOME I AM GOING TO KILL MYSELF I HAVE NOWHERE TO LIVE BY SWALLOWING A BUNCH OF PILLS, I TRIED ALREADY WHEN I WAS 28 YEARS OLD."PATIENT ALERT AND ORIENTED, NO SOB OR DISTRESS NOTED. PATIENT DENIED THE DESIRE CURRENTLY FOR SELF HARM OR SUICIDE. PAGED TO UPDATE.WILL CONTINUE TO MONITOR.
--- NOTE | 2020-01-27 09:30 | NUR ---
TELE PSYC ORDER PENDING. AWAITING DELIVERY OF BEDSIDE COMPUTER FOR TELE PSYC CONSULT WITH .
[2020-01-27] MEDS: ASCORBIC ACID 1,000 MG TAB PO SCH (10:59)
[2020-01-27] MEDS: DOXYCYCLINE 100 MG TAB/CAP PO SCH ×2 (10:59→21:40)
[2020-01-27] MEDS: ZINC SULFATE 220mg CAP or TAB PO SCH (10:59)
[2020-01-27] MEDS: CHOLECALCIFEROL (VITD3) 2,000 UNIT CAP PO SCH (10:59)
[2020-01-27] MEDS: PANTOPRAZOLE 40 MG TAB PO SCH (11:00)
[2020-01-27] MEDS: DexAMETHasone 4 MG TAB PO SCH (11:00)
[2020-01-27] MEDS: methIMAzole 5 MG TAB PO SCH (11:00)
[2020-01-27 12:44] VITALS: BP 126/81
--- NOTE | 2020-01-27 14:00 | NUR ---
TELE [facility] COMPLETED AWAITING RESULTS.
--- NOTE | 2020-01-27 14:34 | NUR ---
FOLLOW UP TO TELE PSYC EVAL. PER ANSWERING SERVICE [phone], REPORT WILL BE FAXED WITHIN ONE HOUR.
--- NOTE | 2020-01-27 16:21 | NUR ---
REPORT RECEIVED FOR TELE PSYC DR SONI UPDATED ON RESULTS. NEW ORDER FOR NEUROLOGY CONSULT. REPORT PLACED IN PATIENT CHART.
[2020-01-27 17:00] VITALS: BP 118/77
--- NOTE | 2020-01-27 18:56 | NUR ---
END OF SHIFT NOTE NEURO CONSULT CALLED BY INIT ADDRESSOGRAPH OPERATOR. PATIENT CONTINUES TO REFUSE IV; DENIED THOUGHTS OF SELF HARM OR SUICIDE AT THIS TIME, FLAT AFFECT. NO DISTRESS, SOB OR PAIN.
[2020-01-27] MEDS: LATANOPROST 0.005 % OPTH(EYE) SOL 2.5ML EACHEYE SCH (21:39)
[2020-01-27] MEDS: ATORVASTATIN 20 MG TAB PO SCH (21:39)
[2020-01-27 22:00] VITALS: BP 106/66
[2020-01-27] MEDS: glipiZIDE 5 MG TAB PO SCH (22:00)
[2020-01-28 05:00] VITALS: BP 111/73
[2020-01-28] MEDS: ALBUTEROL SULF HFA 90MCG INH 200DOSE IN SCH (06:05)
[2020-01-28] MEDS: ACCU-CHEK COMFORT CURVE STRIP VI SCH ×4 (06:30→22:44)
[2020-01-28] MEDS: InsuLIN REG 1unit/0.01ml Soln (100units/ml) SC SCH ×4 (06:32→22:46)
--- NOTE | 2020-01-28 07:40 | NUR ---
Patient off unit for CT
[2020-01-28 08:00] VITALS: BP 109/60
--- NOTE | 2020-01-28 08:00 | NUR ---
Patient returned to room from CT
--- NOTE | 2020-01-28 08:30 | NUR ---
Patient refusing IV placement, patient educated on IV, patient still refusing. aware.
[2020-01-28 09:00] VITALS: BP 109/60
[2020-01-28] MEDS: ZINC SULFATE 220mg CAP or TAB PO SCH (10:06)
[2020-01-28] MEDS: DexAMETHasone 4 MG TAB PO SCH (10:06)
[2020-01-28] MEDS: PANTOPRAZOLE 40 MG TAB PO SCH (10:06)
[2020-01-28] MEDS: CHOLECALCIFEROL (VITD3) 2,000 UNIT CAP PO SCH (10:07)
[2020-01-28] MEDS: DOXYCYCLINE 100 MG TAB/CAP PO SCH ×2 (10:07→22:44)
[2020-01-28] MEDS: methIMAzole 5 MG TAB PO SCH (10:07)
[2020-01-28] MEDS: ASCORBIC ACID 1,000 MG TAB PO SCH (10:07)
[2020-01-28] MEDS ORDERED: ALBUTEROL SULF HFA 90MCG INH 200DOSE IN PRN (10:15)
[2020-01-28] MEDS: glipiZIDE 5 MG TAB PO SCH (10:16)
[2020-01-28 12:44] VITALS: BP 118/61
[2020-01-28 16:55] VITALS: BP 111/65
--- NOTE | 2020-01-28 17:10 | NUR ---
Dr Freeman bedside with patient discussing plan of care. Orders received and carried out. Another tele [facility] order has been placed for tomorrow morning.
--- NOTE | 2020-01-28 19:19 | NUR ---
Opening Shift Note Assumed care of patient, awake, alert and oriented x4, on room air with even and unlabored respirations, no S/S of distress/SOB or pain. Patient able to ambulate independently, bed in lowest locked position, side rails up x2, and call light within reach. Instructed on POC and to call for assist PRN, will continue to monitor for changes Q1hr and PRN.
[2020-01-28] MEDS ORDERED: glipiZIDE 5 MG TAB PO SCH (22:00)
[2020-01-28] MEDS: LATANOPROST 0.005 % OPTH(EYE) SOL 2.5ML EACHEYE SCH (22:38)
[2020-01-28] MEDS: ATORVASTATIN 20 MG TAB PO SCH (22:45)
[2020-01-29] MEDS: ACCU-CHEK COMFORT CURVE STRIP VI SCH (06:30)
[2020-01-29] MEDS: InsuLIN REG 1unit/0.01ml Soln (100units/ml) SC SCH (06:33)
[2020-01-29 08:00] VITALS: BP 115/68
--- NOTE | 2020-01-29 08:42 | NUR ---
Paged Dr Freeman, patient is refusing telepysch and wants to leave AMA.
[2020-01-29 08:54] VITALS: BP 115/68
--- NOTE | 2020-01-29 08:54 | NUR ---
AMA Note MONSE CARNEY states he wants to leave the hospital Against Medical Advice (AMA). Patient encouraged to stay for further treatment/stabilization. Patient said he will not do the tele psych and wants to leave. Patient states "I will not take any medications and do what they want me to do". Dr Freeman notified of patient's wishes. Patient advised of the risks and benefits of leaving AMA. Patient verbalized understanding. Patient encouraged to return to the ER if symptoms do not improve or worsen.
--- NOTE | 2020-01-29 09:05 | NUR ---
Dr Freeman informed patient left AMA. Per Dr Freeman, report filed. Incident # [id number]
--- NOTE | 2020-01-29 14:39 | NUR ---
Nutrition Followup Notes Pt wt is 115.0 kg Pt is positive for COVID, in isolation. Pt is with a CCHO 45g diet, appetite is good aeb ave 90% x 65PO intake per RN doc. Est Energy needs: 4268-4812 kcals (12-15 kcal/kgBW) Est Protein needs: 156-195 gms/day (2.0-2.5 gm/kgIBW 78kg) Will continue to monitor and reassess prn. LABS: GLUC 240 H, A1c 7.1 H, ALB 2.5 L GI: Pt had 3 BMs on 01/27 per RN doc. BS: 21 low risk. Refer to wound assessment report for further details. PES: 1) Obesity r/t energy intake in excess of energy needs aeb BMI of 40.3 kg/m2 2) Altered nutrition related lab values r/t current/chronic medical condition aeb hyperglycemia, elev RFT, hypoalbuminemia Comments Will continue to monitor PO status, skin status, pertinent labs and weight trends. Will f/u in 3-5 days 1) Continue to closely monitor pt PO intake to meet at least 75% of meals 2) Continue current plan of care
== END 2020-01-29 08:55 | disposition left against medical advice (07) | DRG 137 ==
LOC: ER 06:50 → TELE 06:51 → TELE-EAST 23:27
PROVIDERS: ADMIT Internal Medicine; ATTEND Internal Medicine
PROC: XW033E5 Introduction of Remdesivir Anti-infective into Peripheral Vein, Percutaneous Approach, New Technology Group 5 (ICD-10-PCS; principal; 2020-01-21)
PROC: XW13325 Transfusion of Convalescent Plasma (Nonautologous) into Peripheral Vein, Percutaneous Approach, New Technology Group 5 (ICD-10-PCS; 2020-01-22)
DX: U07.1 COVID-19 (principal); J96.01 Acute respiratory failure with hypoxia; J12.89 Other viral pneumonia; I10 Essential (primary) hypertension; E78.5 Hyperlipidemia, unspecified; E66.01 Morbid (severe) obesity due to excess calories; J90 Pleural effusion, not elsewhere classified; E03.9 Hypothyroidism, unspecified; E11.65 Type 2 diabetes mellitus with hyperglycemia; F32.9 Major depressive disorder, single episode, unspecified; H40.9 Unspecified glaucoma; K21.9 Gastro-esophageal reflux disease without esophagitis; Z53.29 Procedure and treatment not carried out because of patient's decision for other reasons; E05.90 Thyrotoxicosis, unspecified without thyrotoxic crisis or storm; Z88.0 Allergy status to penicillin; Z79.899 Other long term (current) drug therapy; Z68.35 Body mass index [BMI] 35.0-35.9, adult
CPT/HCPCS: 36415; 70450; 71045; 71275; 80048; 80053; 80076; 81001; 82728; 82962; 83036; 83605; 83615; 83735; 84484; 85007; 85025; 85027; 85379; 86141; 86850; 86900; 86901; 87040; 87426; 93005; 93970; 94640; 96374; 99291; G0378; J1100; J1815; J3490